=== PATIENT | female | born 1990 | race Caucasian/White ===

== ENCOUNTER → 2017-07-03 22:16 | Outpatient (CLI) | payer BC | END | disposition home or self-care (01) | LOC: D.MAMMO 14:30 | DX: N60.01 Solitary cyst of right breast (principal) ==

== ENCOUNTER → 2017-07-15 09:16 | Outpatient (CLI) | payer BC | END | disposition home or self-care (01) | LOC: D.US 07-11 14:00 | DX: R92.8 Other abnormal and inconclusive findings on diagnostic imaging of breast (principal) ==